=== PATIENT | male | born 1970 | race African-American/Black ===

== ENCOUNTER 2022-06-19 18:41 | Emergency (ER) | payer OTHER, MEDICAID, SELFPAY ==
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
--- NOTE | 2022-06-19 19:25 | PC.NURSE ---
Bilateral hands bagged w/ paper bags @ 1846 after pronounced. Ruling Technician called 1854 / Case # [id number] Osteopathic Resident called @ 1856: Pancho Goldberg [phone]. Osteopathic Resident declines any organ / tissue donation at this time. ETA 2015. Officer Maryana Hua of [facility] [employer] present. (Bita rai, [facility] assisting)
--- NOTE | 2022-06-19 21:04 | PC.NURSE ---
spoke with [facility] bank and provided information, no requests or instructions received at this time
== END 2022-06-20 00:27 | disposition expired ==
PROVIDERS: Emergency Provider Emergency Medicine
DX: I46.8 Cardiac arrest due to other underlying condition (principal); S21.132A Puncture wound without foreign body of left front wall of thorax without penetration into thoracic cavity, initial encounter; W34.00XA Accidental discharge from unspecified firearms or gun, initial encounter
CPT/HCPCS: 92950; 99284